=== PATIENT | male | born 1960 | race African-American/Black ===

== ENCOUNTER 2022-04-10 13:46 | Inpatient (IN) | payer OTHER, SELFPAY ==
--- NOTE | ~2022-04-10 | MR_ITS ---
MR BRAIN WITHOUT AND WITH CONTRAST CLINICAL INFORMATION: Possible seizure. Syncope. COMPARISON: Head CT April 10, 2022. TECHNIQUE: Multiplanar, multisequence MRI of the brain was obtained before and after the intravenous administration of 8.5 mL of Gadavist. FINDINGS: There is the suggestion of a punctate acute infarct within the right occipital lobe on image 19 of series 4. There is a small curvilinear focus of enhancement more inferomedially at the right temporal occipital lobe junction on image 9 of series 12 that could reflect enhancement due to a subacute infarct with associated blood brain barrier breakdown that is nonspecific and should be followed with a 6-8 week follow-up MRI with and without IV contrast to document resolution and exclude alternative etiologies. Hippocampi are symmetric in size and normal in morphology without intrinsic signal abnormality. There is a possible 3 mm hypoenhancing lesion within the right aspect of the anterior pituitary lobe that could reflect a pituitary microadenoma which can be correlated with endocrine function tests. There is no hydrocephalus, midline shift, or other herniation pattern. Major arterial flow voids are maintained. There is moderate mucosal thickening throughout all of the paranasal sinuses. The mastoid air cells are clear. MR/MR head/brain wo/w con IMPRESSION: - There is the suggestion of a punctate acute infarct within the right occipital lobe on image 19 of series 4. There is a small curvilinear focus of enhancement more inferomedially at the right temporal occipital lobe junction on image 9 of series 12 that could reflect enhancement due to a subacute infarct with associated blood brain barrier breakdown that is nonspecific and should be followed with a 6-8 week follow-up MRI with and without IV contrast to document resolution and exclude alternative etiologies. - There is a possible 3 mm hypoenhancing lesion within the right aspect of the anterior pituitary lobe that could reflect a pituitary microadenoma which can be correlated with endocrine function tests. - There is mild to moderate chronic microangiopathy. - Moderate sinus mucosal disease.
--- NOTE | ~2022-04-10 | CT_ITS ---
EXAMINATION: CT HEAD WITHOUT CONTRAST CLINICAL INFORMATION: Syncope COMPARISON: None. TECHNIQUE: Contiguous axial imaging was performed from the skull base to vertex without intravenous contrast. This CT examination was performed using dose optimization techniques as appropriate, variously including the following: * Automated exposure control * Adjustment of mA and/or kV according to patient size (this includes techniques or standardized protocols for targeted exams where dose is matched to indication/reason for exam; i.e. extremities or head) Use of iterative reconstruction technique DLP: 620 mGy-cm. FINDINGS: There is no evidence of acute intracranial hemorrhage or territorial infarction. No abnormal mass effect or midline shift is seen. Blanco to white matter differentiation is well preserved. No extra-axial fluid collections are identified. No hydrocephalus. No significant volume loss. There is no abnormal attenuation within the brain parenchyma. The osseous structures and soft tissues are normal. Extensive opacification of the bilateral ethmoid air cells. Mucoperiosteal thickening of the frontal sinuses. The mastoid air cells and visualized portions of the paranasal sinuses are otherwise well aerated. CT/CT head/brain wo con IMPRESSION: No acute intracranial pathology.
--- NOTE | ~2022-04-10 | XR_ITS ---
EXAMINATION: XR CHEST CLINICAL INFORMATION: Syncope COMPARISON: None TECHNIQUE: 2 views of the chest were obtained. FINDINGS: The lungs are well expanded. There is no focal consolidation, edema, or effusion. No pneumothorax. The cardiomediastinal silhouette is within normal limits. No acute osseous abnormality. XR/XR chest 2V IMPRESSION: No acute pulmonary finding.
--- NOTE | ~2022-04-10 | CT_ITS ---
CT ANGIOGRAM NECK WITH CONTRAST CT ANGIOGRAM BRAIN WITH CONTRAST CLINICAL INFORMATION: Acute stroke on MRI. COMPARISON: Brain MRI April 13, [address] April 10, 2022. TECHNIQUE: Test bolus sequences followed by intravenous administration 8.5 mL of Gadavist. Helical imaging was performed in the axial plane from the thoracic inlet to the skull vertex. Delayed postcontrast imaging of the head was also performed. The data was processed at the arrt technologist workstation for generation of MIP sequences. Angled MIPs and volume rendered reformatted images were also generated at an offline 3D workstation under concurrent supervision. Stenoses are assessed in accordance with NASCET criteria unless otherwise indicated. This CT examination was performed using dose optimization techniques as appropriate, variously including the following: *Automated exposure control *Adjustment of mA and/or kV according to patient size (this includes techniques or standardized protocols for targeted exams where dose is matched to indication/reason for exam; i.e. extremities or head) *Use of iterative reconstruction technique FINDINGS: BRAIN: [There is no intracranial hemorrhage, hydrocephalus, extra-axial surface collection, midline shift, or other herniation pattern. Blanco to white matter differentiation is diffusely maintained without evidence of an evolved acute territorial infarct. The basilar cisterns are preserved. No significant soft tissue abnormality. No acute osseous abnormality. Moderate mucosal thickening throughout the paranasal sinuses. CERVICAL SOFT TISSUES AND LUNG APICES: Imaged upper lungs are clear. There is multilevel cervical spondylosis. No significant soft tissue findings within the neck. NECK CTA: [There is a classic 3 vessel configuration of the aortic arch. Proximal arch vessels are non-stenotic. The right vertebral artery is dominant. No significant ostial stenosis is visualized on either side. Both vertebral arteries are widely patent throughout their extracranial cervical course. Both common and internal carotid arteries are normal in course and caliber.] BRAIN CTA: [There is normal opacification of major intracranial arteries. No focal flow-limiting stenosis nor discrete proximal large artery occlusion. No aneurysm. Timing of the contrast bolus allows assessment of the major dural venous sinuses, which all opacify normally] CT/CT angio head neck stroke IMPRESSION: - The small punctate acute infarct within the right occipital lobe seen on the recent brain MRI is not well visualized on this head CT. Chronic microangiopathy again noted. - No acute arterial occlusions and no significant arterial stenoses within the head or neck.
[2022-04-10 14:00] VITALS: BP 98/76; PULSE 84; RESP 18; TEMP 36.7; O2SAT 96; BMI 24.9
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
--- NOTE | 2022-04-10 14:11 | ECG_ITS ---
Test Reason : syncope Blood Pressure : / mmHG Vent. Rate : 083 BPM Atrial Rate : 083 BPM P-R Int : 190 ms QRS Dur : 082 ms QT Int : 386 ms P-R-T Axes : 044 265 080 degrees QTc Int : 453 ms Normal sinus rhythm Possible Left atrial enlargement Right superior axis deviation Nonspecific ST and T wave abnormality Abnormal ECG No previous ECGs available Referred By: Mariam Nava Electronically Signed By:NAZ SALEH
[2022-04-10] MEDS: 0.9 % Sodium Chloride 1,000 ML 999 ML IV (15:06)
[2022-04-10 16:06] LABS: MANUAL DIFF FLAG NO
[2022-04-10 16:08] LABS: Basophils Percent Auto 0.3 % (0-2); Eosinophils Absolute Auto 0.2 X10*3/uL (0.0-0.4); Eosinophils Percent Auto 1.9 % (0-4); Hematocrit 43.6 % (42.0-52.0); Hemoglobin 14.1 g/dl (14.0-18.0); Imm Gran Abs Auto 0.03 X10*3/uL (0.00-0.03); Imm Gran Pct Auto 0.3 % (0.0-0.4); Lymphocytes Absolute Auto 2.2 X10*3/uL (1.2-4.9); Lymphocytes Percent Auto 19.3 % (20-40); Mean Corpuscular HGB Conc 32.3 g/dl (31.0-36.0); Mean Corpuscular Hemoglobin 22.1 pg (27.0-33.0); Mean Corpuscular Volume 68.2 fL (80.0-98.0); Mean Platelet Volume 9.5 fL (9.4-12.4); Monocytes Absolute Auto 0.7 X10*3/uL (0.1-1.2); Monocytes Percent Auto 6.5 % (2-11); Neutrophils Percent Auto 71.7 % (45-73); Platelet Count 197 X10*3/uL (160-400); Red Blood Count 6.39 X10*6/uL (4.60-5.80); Red Cell Distribution Width 14.2 % (11.0-16.0); White Blood Count 11.1 X10*3/uL (4.8-10.8)
[2022-04-10 16:19] LABS: Ethanol < 10 mg/dL
[2022-04-10 16:24] LABS: Alanine Aminotransferase 37 U/L (0-40); Albumin Level 4.1 g/dL (3.5-5.0); Alkaline Phosphatase 51 U/L (39-117); Anion Gap 14 (12-20); Aspartate Amino Transferase 27 U/L (5-37); Blood Urea Nitrogen 11 mg/dL (9-16); Calcium 9.1 mg/dL (8.4-10.2); Carbon Dioxide 26 mmol/L (22-29); Chloride 103 mmol/L (96-108); Creatinine Clr Calc Pharmacy 79.3; Estimated Glomerular Filt Rate > 60; Glucose Random 103 mg/dL (60-115); Magnesium 2.1 mg/dL (1.6-2.6); Potassium 4.3 mmol/L (3.3-5.1); Sodium 139 mmol/L (135-145); Total Protein 6.1 g/dL (6.5-8.0)
[2022-04-10 16:28] LABS: B Type Natriuretic Peptide 1248 pg/mL (<100); Troponin-I High Sensitivity 95.9 ng/L (<3.5-35.0)
[2022-04-10 16:31] LABS: COVID-19 Test Negative (Negative)
[2022-04-10 16:52] VITALS: BP 105/73; PULSE 85; RESP 18; TEMP 36.5; O2SAT 97
--- NOTE | 2022-04-10 17:50 | PHA.MEDREC ---
Pharmacy Consult ? Medication Reconciliation Pharmacy has completed the medication reconciliation Patient states he only takes latanoprost eye drops.
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
[2022-04-10 18:36] LABS: Troponin-I High Sensitivity 103.8 ng/L (<3.5-35.0)
[2022-04-10 19:41] LABS: INTERNATIONAL NORM RATIO 1.1 (0.9-1.1); Prothrombin Time 13.1 SEC (10.0-13.1)
[2022-04-10 19:43] LABS: D Dimer High Sensitivity 159 NG/ML; Partial Thromboplastin Time 33.4 SEC (26.0-36.4)
[2022-04-10] MEDS: Enoxaparin Sodium 40 MG/0.4 ML SYRINGE SUBCUT (19:51)
--- NOTE | 2022-04-10 21:50 | MHC.CM.PN ---
WILLIS 04/10. Cm with patient assigned to observation with bed assignment pending. Pt respectful but not engaging in conversation. Pt lives in [place], [place]. Here visiting. Lives with ex-. Has no DME or Services. Unsure of employment, as pt would not answer. Pt state insurance is [employer] in [place]. PCP is Dr. Deangelo Watson in [place]. Pt declines HCP. Covid vax x2/Moderna. No booster. Pt states will not get a booster. D/C plan is to return home to [place] without services. Will follow up with PCP. Pt will drive himself. CM will follow for d/c planning.
[2022-04-10 21:57] VITALS: BP 101/65; PULSE 87; RESP 18; TEMP 36.7; O2SAT 97
[2022-04-10 22:03] VITALS: BP 101/65; PULSE 87
[2022-04-10 22:04] VITALS: BP 112/76; PULSE 85
[2022-04-10 22:05] VITALS: BP 110/73; PULSE 84
[2022-04-11] VITALS (13 sets, daily range): BP systolic 90–124; BP diastolic 49–82; PULSE 71–86; RESP 14–20; TEMP 36.7–37; O2SAT 95–98
[2022-04-11 01:13] LABS: Appearance Urine Clear; Color Urine Yellow; Glucose Urine UA Negative (Negative); Leukocyte Esterase Urine Negative (Negative); Nitrite Urine Negative (Negative); Specific Gravity - Urine <= 1.005 (1.005-1.025); Urine Blood Negative (Negative); Urine Ketones Negative (Negative); Urine Protein Negative (Neg-Trace)
[2022-04-11 01:22] LABS: Amphetamine Screen Urine Not Detected (Not Detect); Barbiturates, Urine Not Detected (Not Detect); Benzodiazepines Screen Urine Not Detected (Not Detect); Cannabinoid Screen Urine Not Detected (Not Detect); Cocaine Screen Urine Not Detected (Not Detect); Fentanyl, urine Not Detected (Not Detect); Opiate Screen Urine Not Detected (Not Detect); Phencyclidine Screen Urine Not Detected (Not Detect)
[2022-04-11] MEDS: 0.9 % Sodium Chloride Flush 3 ML SYRINGE IVFLUSH ×3 (01:57→16:22)
[2022-04-11 06:51] LABS: Anion Gap 12 (12-20); Blood Urea Nitrogen 10 mg/dL (9-16); Calcium 8.9 mg/dL (8.4-10.2); Carbon Dioxide 27 mmol/L (22-29); Chloride 105 mmol/L (96-108); Estimated Glomerular Filt Rate > 60; Glucose Random 100 mg/dL (60-115); Potassium 4.1 mmol/L (3.3-5.1); Sodium 140 mmol/L (135-145)
--- NOTE | 2022-04-11 11:18 | HO.PM.IMPN ---
Subjective Subjective Date of Service: 04/11/22 Interval History: Seen and evaluated this morning Feels more comfortable with no reported chest pain or further episodes of syncope Review of Systems No fever, chills or weakness No chest pain, palpitation No shortness of breath or coughing No abdominal pain, nausea or vomiting No urinary symptoms No any rash or wounds Physical Exam Vital Signs: Vital Signs: Last Vital Signs Temp 98.4 F 04/11/22 00:00 Pulse 80 04/11/22 08:05 Resp 18 04/11/22 08:05 BP 120/75 04/11/22 08:05 Pulse Ox 95 04/11/22 08:05 O2 Del Method 04/11/22 08:05 BMI result Body Mass Index 24.9 Const: Other: Constitutional : Alert, oriented, not in distress Neck : Normal inspection, Supple Cardiovascular : RRR, no JVP, no lower extremity edema, Respiratory : fair bilateral air entry, no crackles, wheezes or rhonchi Gastrointestinal: soft, lax, Normal bowel sounds, Non tender Skin : Warm, Dry Neurological : Alert & oriented x3, No focal deficit , CN 2-12 within normal Objective Data Active Medications Acetaminophen (Acetaminophen 325 Mg Tablet) 650 mg PO Q6H PRN PRN Reason: Pain, Mild (Pain Scale 1-3) Enoxaparin Sodium (Enoxaparin Sodium 40 Mg/0.4 Ml Syringe) 40 mg SUBCUT Q24H [facility] Last Admin: 04/10/22 19:51 Dose: 40 mg Documented By: ANTHONY Ondansetron HCl (Ondansetron Hcl 4 Mg/2 Ml Vial) 4 mg IVPUSH Q8H PRN PRN Reason: Nausea and Vomiting Pharmacy Consult (Consult Rx Perform Med Rec) 1 each MISCELLANE ONCE PRN PRN Reason: Consult order Sodium Chloride (0.9 % Sodium Chloride Flush 3 Ml Syringe) 3 ml IVFLUSH QSHIFT [facility] Last Admin: 04/11/22 08:00 Dose: 3 ml Documented By: ASUNCION Labs CBC & Chem 7: 04/10/22 16:01 04/11/22 06:02 Labs: Laboratory Results - last 24 hr 04/10/22 04/10/22 04/10/22 16:00 16:01 16:01 MCV 68.2 L MCH 22.1 L MCHC 32.3 RDW 14.2 Plt Count 197 MPV 9.5 Immature Gran % (Auto) 0.3 Neut % (Auto) 71.7 Lymph % (Auto) 19.3 L Arthur % (Auto) 6.5 Eos % (Auto) 1.9 Baso % (Auto) 0.3 Lymph # (Auto) 2.2 Arthur # (Auto) 0.7 Eos # (Auto) 0.2 Baso # (Auto) 0.0 Abs Immat Gran (auto) 0.03 Absolute Neuts (auto) 8.0 Absolute Nucleated RBC 0.000 Nucleated RBC % (auto) 0.0 PT INR APTT D-Dimer High Sensitivty Anion Gap 14 Estim Creat Clear Calc 79.3 Estimated GFR > 60 Random Glucose 103 Lactic Acid Calcium 9.1 Magnesium 2.1 Total Bilirubin 1.0 AST 27 ALT 37 Alkaline Phosphatase 51 B-Natriuretic Peptide Total Protein 6.1 L Albumin 4.1 Urine Color Urine Appearance Urine pH Ur Specific [place] Urine Protein Urine Glucose (UA) Urine Ketones Urine Blood Urine Nitrite Ur Leukocyte Esterase Urine Opiates Screen Urine Fentanyl Screen Ur Barbiturates Screen Ur Phencyclidine Scrn Ur Amphetamines Screen U Benzodiazepines Scrn Urine Cocaine Screen U Marijuana (THC) Screen Ethyl Alcohol COVID-19 ([facility]) Negative COVID-19 Clin Com See Note 04/10/22 04/10/22 04/10/22 16:01 16:01 16:01 MCV MCH MCHC RDW Plt Count MPV Immature Gran % (Auto) Neut % (Auto) Lymph % (Auto) Arthur % (Auto) Eos % (Auto) Baso % (Auto) Lymph # (Auto) [place] # (Auto) Eos # (Auto) Baso # (Auto) Abs Immat Gran (auto) Absolute Neuts (auto) Absolute Nucleated RBC Nucleated RBC % (auto) PT INR APTT D-Dimer High Sensitivty Anion Gap Estim Creat Clear Calc Estimated GFR Random Glucose Lactic Acid 1.0 Calcium Magnesium Total Bilirubin AST ALT Alkaline Phosphatase B-Natriuretic Peptide 1248 H Total Protein Albumin Urine Color Urine Appearance Urine pH Ur Specific [place] Urine Protein Urine Glucose (UA) Urine Ketones Urine Blood Urine Nitrite Ur Leukocyte Esterase Urine Opiates Screen Urine Fentanyl Screen Ur Barbiturates Screen Ur Phencyclidine Scrn Ur Amphetamines Screen U Benzodiazepines Scrn Urine Cocaine Screen U Marijuana (THC) Screen Ethyl Alcohol < 10 COVID-19 ([facility]) COVID-19 [facility] Com 04/10/22 04/11/22 04/11/22 19:27 01:00 01:00 MCV MCH MCHC RDW Plt Count MPV Immature Gran % (Auto) Neut % (Auto) Lymph % (Auto) Arthur % (Auto) Eos % (Auto) Baso % (Auto) Lymph # (Auto) [place] # (Auto) Eos # (Auto) Baso # (Auto) Abs Immat Gran (auto) Absolute Neuts (auto) Absolute Nucleated RBC Nucleated RBC % (auto) PT 13.1 INR 1.1 APTT 33.4 D-Dimer High Sensitivty 159 Anion Gap Estim Creat Clear Calc Estimated GFR Random Glucose Lactic Acid Calcium Magnesium Total Bilirubin AST ALT Alkaline Phosphatase B-Natriuretic Peptide Total Protein Albumin Urine Color Yellow Urine Appearance Clear Urine pH 6.0 Ur Specific [place] <= 1.005 Urine Protein Negative Urine Glucose (UA) Negative Urine Ketones Negative Urine Blood Negative Urine Nitrite Negative Ur Leukocyte Esterase Negative Urine Opiates Screen Not Detected Urine Fentanyl Screen Not Detected Ur Barbiturates Screen Not Detected Ur Phencyclidine Scrn Not Detected Ur Amphetamines Screen Not Detected U Benzodiazepines Scrn Not Detected Urine Cocaine Screen Not Detected U Marijuana (THC) Screen Not Detected Ethyl Alcohol COVID-19 ([facility]) COVID-19 [facility] Com 04/11/22 06:02 MCV MCH MCHC RDW Plt Count MPV Immature Gran % (Auto) Neut % (Auto) Lymph % (Auto) [place] % (Auto) Eos % (Auto) Baso % (Auto) Lymph # (Auto) [place] # (Auto) Eos # (Auto) Baso # (Auto) Abs Immat Gran (auto) Absolute Neuts (auto) Absolute Nucleated RBC Nucleated RBC % (auto) PT INR APTT D-Dimer High Sensitivty Anion Gap 12 Estim Creat Clear Calc 80.0 Estimated GFR > 60 Random Glucose 100 Lactic Acid Calcium 8.9 Magnesium Total Bilirubin AST ALT Alkaline Phosphatase B-Natriuretic Peptide Total Protein Albumin Urine Color Urine Appearance Urine pH Ur Specific [place] Urine Protein Urine Glucose (UA) Urine Ketones Urine Blood Urine Nitrite Ur Leukocyte Esterase Urine Opiates Screen Urine Fentanyl Screen Ur Barbiturates Screen Ur Phencyclidine Scrn Ur Amphetamines Screen U Benzodiazepines Scrn Urine Cocaine Screen U Marijuana (THC) Screen Ethyl Alcohol COVID-19 (LAINE) COVID-19 [facility] Com Assessment and Plan (1) Elevated brain natriuretic peptide (BNP) level: Status: Acute (2) Syncope: Status: Acute (3) Elevated troponin: Status: Acute Plan a 61 years old male with no significant past medical history who presents to the hospital after having a syncopal episode. Syncope Could be secondary to arrhythmia, vasovagal attack, orthostatic changes, Less likely seizure No abnormal rhythm noticed on telemetry negative orthostatic vitals cardiology input appreciated, get previous data and plan for workup by Wednesday Elevated troponin Troponin of 95, repeated [address] and T-wave changes, slow progression of QRS no indication for anticoagulation cardiology suggested possible need for angiogram elevated BNP No clinical symptoms of heart failure Could be secondary to pulmonary hypertension, ACS No chest pain, not requiring oxygen, no lower extremity edema to do an echo to evaluate negative D-dimer DVT PPX Lovenox the patient will need to stay overnight for further evaluation of syncope, abnormal troponin pending further investigation by Wednesday. Quality Stroke Does the patient have a stroke diagnosis?: No VTE Prior VTE?: No VTE Risk Level:: Medical - moderate - high VTE Device Contraindication: Treatment Not Indicated VTE Drug Contraindication: N/A - Med Ordered
--- NOTE | 2022-04-11 11:45 | P.CONCA_ITS ---
History of Present Illness History of Present Illness Date of Service: 04/11/22 Chief complaint: Syncope Narrative: This is a cardiology consultation regarding a syncopal episode. Patient is urgently from ER. It seems that he came to visit this area and then while he was driving locally, he had syncopal episode. According to family, he suddenly became noncommunicative. It was even difficult to open his mouth to give him water. It seems that his face was on the steering wheel. Per documentation, he regained full consciousness within a minute or 2. However, the the whole episod e felt like last much longer. No anginal-type symptoms or any other cardiac symptoms at this time. Otherwise, because of shortness of breath on exertion, he has seen a local roller coaster operator in your. It seems that he underwent echocardiogram as well as stress test. Findings are not clear. According to patient, he was told to have a thick heart muscle. He is not aware of any weak heart function or any of those types of terms. However, based on his description of ' dye test', probably for cardiac catheterization but not yet completed. Review of Systems Review of Systems: Yes all other systems are reviewed and are negative Constitutional: Constitutional: Reports as per HPI Eyes: Eyes: Reports as per HPI ENT: Reports as per HPI Cardiovascular: Cardiovascular: Reports as per HPI, Denies acrocyanosis, Denies cool extremities, Denies chest pain, Reports syncope, Denies leg edema, Denies lightheadedness, Denies palpitations and Denies dyspnea Respiratory: Respiratory: Reports as per HPI, Reports no additional respiratory complaints and Denies dyspnea Gastrointestinal: Gastrointestinal: Reports as per HPI and Reports no additional gastrointestinal complaints Genitourinary: Genitourinary: Reports no additional male genitourinary complaints and Reports as per HPI Musculoskeletal: Musculoskeletal: Reports no additional musculoskeletal complaints and Reports as per HPI Integumentary/Breasts: Skin/Breast: Reports system reviewed and no additional complaints, except as docu Neurologic: Reports system reviewed and no additional complaints, except as documented, Reports as per HPI and Reports syncope Psychiatric: Psychiatric: Reports no additional psychiatric complaints and Reports as per HPI Endocrine: Endocrine: Reports no additional endocrine complaints, Reports as per HPI and Denies palpitations Hematologic/Lymphatic: Hematologic/Lymphatic: Reports no additional hematologic/lymphatic complaints and Reports as per HPI Allergic/Immunologic: Allergic/Immunologic: Reports no additional aller gic/immunologic complaints and Reports as per [facility] Past Medical History Medical History Glaucoma Family History Family History (Updated 04/11/22 @ 11:48 by Azael Carter MD) Father Heart problem Social History Social History Advance Directives: No Advance Directives Information Provided: No service: No Current occupational status: other Meds Allergies Allergy/AdvReac Type Severity Reaction Status Date / Time No Known Allergies Allergy Verified 04/10/22 14:01 Active Medications: Current Medications Acetaminophen (Acetaminophen 325 Mg Tablet) 650 mg PO Q6H PRN PRN Reason: Pain, Mild (Pain Scale 1-3) Enoxaparin Sodium (Enoxaparin Sodium 40 Mg/0.4 Ml Syringe) 40 mg SUBCUT Q24H [facility] Last Admin: 04/10/22 19:51 Dose: 40 mg Ondansetron HCl (Ondansetron Hcl 4 Mg/2 Ml Vial) 4 mg IVPUSH Q8H PRN PRN Reason: Nausea and Vomiting Pharmacy Consult (Consult Rx Perform Med Rec) 1 each MISCELLANE ONCE PRN PRN Reason: Consult order Sodium Chloride (0.9 % Sodium Chloride Flush 3 Ml Syringe) 3 ml IVFLUSH QSHIFT [facility] Last Admin: 04/11/22 08:00 Dose: 3 ml Home Medications Medication Instructions Recorded Confirmed Last Taken Type latanoprost 0.005 % eye drops 1 drp ophthalmic (eye) DAILY 04/10/22 04/10/22 04/09/22 History Physical Exam Vital Signs: Vital Signs: Last Vital Signs Temp 98.4 F 04/11/22 00:00 Pulse 80 04/11/22 08:05 Resp 18 04/11/22 08:05 BP 120/75 04/11/22 08:05 Pulse Ox 95 04/11/22 08:05 O2 Del Method 04/11/22 08:05 BMI result Body Mass Index 24.9 Const: General: comfortable and no acute distress Orientation/consciousness: patient oriented x3 HEENT: Other: Unremarkable Head: Yes normal to inspection Neck: Neck: Yes normal visual inspection Chest: Chest palpation & inspection: normal inspection of the chest Resp: Auscultation: clear to auscultation bilaterally Cardio: Palpation: normal PMI Heart sounds: S1 normal heart sound present, S2 normal heart sound present, no gallops, no murmurs and no rubs GI: Palpation (GI): Soft to palpation Back/Spine/Pelvis: Other: unremarkable Skin: General skin exam: no rashes or lesions noted Neuro: General: patient oriented x3 Extrem: General: Yes normal to inspection Psych: Mental Status: mental status grossly normal Objective Labs and Meds Result diagrams: 04/10/22 16:01 04/11/22 06:02 Lab results: Laboratory Results - last 24 hr 04/10/22 04/10/22 04/10/22 16:00 16:01 16:01 WBC 11.1 H RBC 6.39 H Hgb 14.1 Hct 43.6 MCV 68.2 L MCH 22.1 L MCHC 32.3 RDW 14.2 Plt Count 197 MPV 9.5 Immature Gran % (Auto) 0.3 Neut % (Auto) 71.7 Lymph % (Auto) 19.3 L [place] % (Auto) 6.5 Eos % (Auto) 1.9 Baso % (Auto) 0.3 Lymph # (Auto) 2.2 [place] # (Auto) 0.7 Eos # (Auto) 0.2 Baso # (Auto) 0.0 Abs Immat Gran (auto) 0.03 Absolute Neuts (auto) 8.0 Absolute Nucleated RBC 0.000 Nucleated RBC % (auto) 0.0 PT INR APTT D-Dimer High Sensitivty Sodium 139 Potassium 4.3 Chloride 103 Carbon Dioxide 26 Anion Gap 14 BUN 11 Creatinine 1.06 Estim Creat Clear Calc 79.3 Estimated GFR > 60 Random Glucose 103 Lactic Acid Calcium 9.1 Magnesium 2.1 Total Bilirubin 1.0 AST 27 ALT 37 Alkaline Phosphatase 51 Troponin I High Sens B-Natriuretic Peptide Total Protein 6.1 L Albumin 4.1 Urine Color Urine Appearance Urine pH Ur Specific [place] Urine Protein Urine Glucose (UA) Urine Ketones Urine Blood Urine Nitrite Ur Leukocyte Esterase Urine Opiates Screen Urine Fentanyl Screen Ur Barbiturates Screen Ur Phencyclidine Scrn Ur Amphetamines Screen U Benzodiazepines Scrn Urine Cocaine Screen U Marijuana (THC) Screen Ethyl Alcohol COVID-19 ([facility]INE) Negative COVID-19 Clin Com See Note 04/10/22 04/10/22 04/10/22 16:01 16:01 16:01 WBC RBC Hgb Hct MCV MCH MCHC RDW Plt Count MPV Immature Gran % (Auto) Neut % (Auto) Lymph % (Auto) [place] % (Auto) Eos % (Auto) Baso % (Auto) Lymph # (Auto) [place] # (Auto) Eos # (Auto) Baso # (Auto) Abs Immat Gran (auto) Absolute Neuts (auto) Absolute Nucleated RBC Nucleated RBC % (auto) PT INR APTT D-Dimer High Sensitivty Sodium Potassium Chloride Carbon Dioxide Anion Gap BUN Creatinine Estim Creat Clear Calc Estimated GFR Random Glucose Lactic Acid 1.0 Calcium Magnesium Total Bilirubin AST ALT Alkaline Phosphatase Troponin I High Sens 95.9 H B-Natriuretic Peptide 1248 H Total Protein Albumin Urine Color Urine Appearance Urine pH Ur Specific [place] Urine Protein Urine Glucose (UA) Urine Ketones Urine Blood Urine Nitrite Ur Leukocyte Esterase Urine Opiates Screen Urine Fentanyl Screen Ur Barbiturates Screen Ur Phencyclidine Scrn Ur Amphetamines Screen U Benzodiazepines Scrn Urine Cocaine Screen U Marijuana (THC) Screen Ethyl Alcohol < 10 COVID-19 ([facility]) COVID-19 Clin Com 04/10/22 04/10/22 04/11/22 18:04 19:27 01:00 WBC RBC Hgb Hct MCV MCH MCHC RDW Plt Count MPV Immature Gran % (Auto) Neut % (Auto) Lymph % (Auto) [place] % (Auto) Eos % (Auto) Baso % (Auto) Lymph # (Auto) [place] # (Auto) Eos # (Auto) Baso # (Auto) Abs Immat Gran (auto) Absolute Neuts (auto) Absolute Nucleated RBC Nucleated RBC % (auto) PT 13.1 INR 1.1 APTT 33.4 D-Dimer High Sensitivty 159 Sodium Potassium Chloride Carbon Dioxide Anion Gap BUN Creatinine Estim Creat Clear Calc Estimated GFR Random Glucose Lactic Acid Calcium Magnesium Total Bilirubin AST ALT Alkaline Phosphatase Troponin I High Sens 103.8 H* B-Natriuretic Peptide Total Protein Albumin Urine Color Yellow Urine Appearance Clear Urine pH 6.0 Ur Specific [place] <= 1.005 Urine Protein Negative Urine Glucose (UA) Negative Urine Ketones Negative Urine Blood Negative Urine Nitrite Negative Ur Leukocyte Esterase Negative Urine Opiates Screen Urine Fentanyl Screen Ur Barbiturates Screen Ur Phencyclidine Scrn Ur Amphetamines Screen U Benzodiazepines Scrn Urine Cocaine Screen U Marijuana (THC) Screen Ethyl Alcohol COVID-19 ([facility]) COVID-19 Clin Com 04/11/22 04/11/22 01:00 06:02 WBC RBC Hgb Hct MCV MCH MCHC RDW Plt Count MPV Immature Gran % (Auto) Neut % (Auto) Lymph % (Auto) [place] % (Auto) Eos % (Auto) Baso % (Auto) Lymph # (Auto) [place] # (Auto) Eos # (Auto) Baso # (Auto) Abs Immat Gran (auto) Absolute Neuts (auto) Absolute Nucleated RBC Nucleated RBC % (auto) PT INR APTT D-Dimer High Sensitivty Sodium 140 Potassium 4.1 Chloride 105 Carbon Dioxide 27 Anion Gap 12 BUN 10 Creatinine 1.05 Estim Creat Clear Calc 80.0 Estimated GFR > 60 Random Glucose 100 Lactic Acid Calcium 8.9 Magnesium Total Bilirubin AST ALT Alkaline Phosphatase Troponin I High Sens B-Natriuretic Peptide Total Protein Albumin Urine Color Urine Appearance Urine pH Ur Specific [place] Urine Protein Urine Glucose (UA) Urine Ketones Urine Blood Urine Nitrite Ur Leukocyte Esterase Urine Opiates Screen Not Detected Urine Fentanyl Screen Not Detected Ur Barbiturates Screen Not Detected Ur Phencyclidine Scrn Not Detected Ur Amphetamines Screen Not Detected U Benzodiazepines Scrn Not Detected Urine Cocaine Screen Not Detected U Marijuana (THC) Screen Not Detected Ethyl Alcohol COVID-19 ([facility]) COVID-19 Clin Com ECG Interpretation: EKG with sinus rhythm at 83/Min; right superior axis; nonspecific ST-T changes; normal ND and corrected QT. Imaging Radiologist's impression: Impressions Head CT 04/10/22 14:48 IMPRESSION: No acute intracranial pathology. Chest X-Ray 04/10/22 14:50 IMPRESSION: No acute pulmonary finding. Assessment and Plan (1) Syncope: Status: Acute (2) Elevated troponin: Status: Acute (3) Elevated brain natriuretic peptide (BNP) level: Status: Acute Plan High sensitivity troponins are 95.9 and 103.8. Cardiac BNP 1248. Other labs grossly unremarkable. Chest x-ray reported to be unremarkable. Head CT shows no acute pathology. Overall, etiology for the syncopal episode is not clear. His elevated cardiac BNP as well as troponins are certainly concerning. We do not have his baseline and hence he could have these chronically elevated. Need to get records from his roller coaster operator regarding what has already been done including echocardiog jhonny/stress test. Otherwise, can monitor on telemetry at this time. May need a diagnostic catheterization as well. Once records are reviewed we can decide. Discussed with family at the bedside. Discussed with Dr. Bowles. Procedures Date of Service Date of Service: 04/11/22
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
--- NOTE | 2022-04-11 13:39 | PC.NURSE ---
Assumed care of pt at 0700, A&Ox4, no complaints of pain at this time, denies any episodes of dizziness or near syncope, denies CP, SOB, N/V at this time. Awaiting cardiac consult. Call granger within reach, will continue to monitor.
--- NOTE | 2022-04-11 16:14 | PC.NURSE ---
Gave report to Rere. Pt going to Rm [id number].
[2022-04-11] MEDS: Enoxaparin Sodium 40 MG/0.4 ML SYRINGE SUBCUT (19:09)
[2022-04-12] VITALS (8 sets, daily range): BP systolic 105–129; BP diastolic 65–81; PULSE 75–81; RESP 18–20; TEMP 36.7–37.2; O2SAT 95–99
[2022-04-12 07:42] LABS: Anion Gap 12 (12-20); B Type Natriuretic Peptide 1337 pg/mL (<100); Blood Urea Nitrogen 10 mg/dL (9-16); Carbon Dioxide 28 mmol/L (22-29); Chloride 103 mmol/L (96-108); Creatinine Clr Calc Pharmacy 72.4; Estimated Glomerular Filt Rate > 60; Glucose Random 122 mg/dL (60-115); Potassium 3.9 mmol/L (3.3-5.1); Sodium 139 mmol/L (135-145)
[2022-04-12] MEDS: 0.9 % Sodium Chloride Flush 3 ML SYRINGE IVFLUSH ×2 (07:48→15:28)
--- NOTE | 2022-04-12 12:26 | HO.PM.IMPN ---
Subjective Subjective Date of Service: 04/12/22 Interval History: Seen and evaluated this morning Feels more comfortable with no reported chest pain or further episodes of syncope No abnormal waves on telemetry Review of Systems No fever, chills or weakness No chest pain, palpitation No shortness of breath or coughing No abdominal pain, nausea or vomiting No urinary symptoms No any rash or wounds Physical Exam Vital Signs: Vital Signs: Last Vital Signs Temp 98.3 F 04/12/22 11:43 Pulse 81 04/12/22 11:43 Resp 20 04/12/22 11:43 BP 112/74 04/12/22 11:43 Pulse Ox 98 04/12/22 11:43 O2 Del Method 04/12/22 11:43 BMI result Body Mass Index 24.9 Const: Other: Constitutional : Alert, oriented, not in distress Neck : Normal inspection, Supple Cardiovascular : RRR, no JVP, no lower extremity edema, Respiratory : fair bilateral air entry, no crackles, wheezes or rhonchi Gastrointestinal: soft, lax, Normal bowel sounds, Non tender Skin : Warm, Dry Neurological : Alert & oriented x3, No focal deficit , CN 2-12 within normal Objective Data Active Medications Acetaminophen (Acetaminophen 325 Mg Tablet) 650 mg PO Q6H PRN PRN Reason: Pain, Mild (Pain Scale 1-3) Enoxaparin Sodium (Enoxaparin Sodium 40 Mg/0.4 Ml Syringe) 40 mg SUBCUT Q24H [facility] Last Admin: 04/11/22 19:09 Dose: 40 mg Documented By: DIANA Ondansetron HCl (Ondansetron Hcl 4 Mg/2 Ml Vial) 4 mg IVPUSH Q8H PRN PRN Reason: Nausea and Vomiting Pharmacy Consult (Consult Rx Perform Med Rec) 1 each MISCELLANE ONCE PRN PRN Reason: Consult order Sodium Chloride (0.9 % Sodium Chloride Flush 3 Ml Syringe) 3 ml IVFLUSH QSHIFT [facility] Last Admin: 04/12/22 07:48 Dose: 3 ml Documented By: SHANNAN Labs CBC & Chem 7: 04/10/22 16:01 04/12/22 06:52 Labs: Laboratory Results - last 24 hr 04/12/22 04/12/22 06:52 06:52 Anion Gap 12 Estim Creat Clear Calc 72.4 Estimated GFR > 60 Random Glucose 122 H Calcium 9.0 B-Natriuretic Peptide 1337 H Assessment and Plan (1) Elevated brain natriuretic peptide (BNP) level: Status: Acute (2) Elevated troponin: Status: Acute (3) Syncope: Status: Acute Plan a 61 years old male with no significant past medical history who presents to the hospital after having a syncopal episode. Syncope no clear etiology identified with seems cardiac in origin No abnormal rhythm noticed on telemetry negative orthostatic vitals to do an echo tomorrow cardiology input appreciated, get previous data and plan for workup by Wednesday Elevated troponin Troponin of 95, repeated [address] and T-wave changes, slow progression of QRS no indication for anticoagulation cardiology following elevated BNP No clinical symptoms of heart failure Could be secondary to pulmonary hypertension, ACS to do an echo to evaluate DVT PPX Lovenox the patient will need to stay overnight for further evaluation of syncope, abnormal troponin pending further investigation by Echo and cardiac follow-up Quality Stroke Does the patient have a stroke diagnosis?: No VTE Prior VTE?: No VTE Risk Level:: Medical - moderate - high VTE Device Contraindication: Treatment Not Indicated VTE Drug Contraindication: N/A - Med Ordered
[2022-04-12] MEDS: Enoxaparin Sodium 40 MG/0.4 ML SYRINGE SUBCUT (18:16)
[2022-04-13] VITALS (11 sets, daily range): BP systolic 94–119; BP diastolic 57–80; PULSE 73–87; RESP 16–20; TEMP 36.4–37.1; O2SAT 93–99
--- NOTE | 2022-04-13 | EEG_ITS ---
This is a 16-channel EEG with an EKG lead. The patient is reported awake during the tracing. Background EEG rhythm is low amplitude 10-12 hertz posteriorly and lower amplitude fast anteriorly. Photic stimulation does not produce any significant driving. Hyperventilation is not performed. Cardiac lead does not reveal any significant abnormality. No definite sharp wave, spikes, or paroxysmal tendency noted. IMPRESSION: No significant abnormality noted on this EEG. MD TIFFANY Ridley/SHAI / [id number]
[2022-04-13] MEDS: 0.9 % Sodium Chloride Flush 3 ML SYRINGE IVFLUSH ×3 (00:07→18:21)
--- NOTE | 2022-04-13 07:00 | CA_ITS ---
Transthoracic Echocardiogram Patient (Last, First, Middle): Moiz Fitzgerald, Gender: Male Date of : 1960 Age: 61 Procedure Date: 04/13/2022 Procedure Type: Transthoracic Echocardiogram Location: [facility] [place] Height: 182.88 cm Weight: 83.46 kg BSA: 2.06 m2 Heart Rate: bpm BP: 115 / 58 mmHg Air Carrier Operations Inspector: WOJCIECH Referring MD: Garrett Bowles MD Compensation Expert: Matias Ram MD Symptoms: Elevated Trop I, Syncope Study Quality: Good ECG Rhythm: Sinus Conclusions: - 1. Low normal LV systolic function with LVEF of 50-55% with severely increase thickness of left ventricular wall with at least grade 2 diastolic dysfunction 2. Moderately dilated left atrium 3. Trivial aortic and mitral regurgitation 4. Normal RV systolic pressure 5. Trivial pericardial effusion Findings Left Ventricle Normal left ventricular cavity size. There is severely increased left ventricular wall thickness. The left ventricular systolic function is low normal. The visually estimated ejection fraction is between 50-55%. Spectral Doppler is indicative of a pseudonormal filling pattern. E/E prime ratio is >15, consistent with elevated filling pressures. Evidence suggests grade II (moderate) diastolic dysfunction. Peak GLS in -13.6%, which is reduced with relative apical sparring. Consider amyloidosis type infiltrative disorder. Right Ventricle Normal right ventricular cavity size. There is low normal right ventricular systolic function. Atria The left atrium is moderately dilated. There is no evidence of interatrial shunt. The right atrium is normal in size. Aortic Valve There is mild thickening of the aortic valve. There is no aortic valve stenosis. There is trace (trivial) aortic valve regurgitation. Mitral Valve There is mild anterior and posterior mitral leaflet thickening. There is trace mitral valve regurgitation. There is no mitral valve stenosis. Pulmonic Valve The pulmonic valve is likely normal. There is trace to mild pulmonic valve regurgitation. Tricuspid Valve Normal tricuspid valve structure. There is trace tricuspid valve regurgitation. The right ventricular systolic pressure is normal. Normal right atrial pressure. There is no evidence of pulmonary hypertension. Great Vessels All visible segments of the aorta are normal in size. The pulmonary artery was not well visualized. Venous The inferior vena cava is normal in size and collapses greater than 50% with inspiration. Pericardium/Pleural There is a trivial pericardial effusion. Prior Study Comparison No prior study available for comparison. Measurements 2D Linear Measurements IVSd: 1.69 0.6-0.9/0.6-1.0 cm LVIDd: 3.99 3.9-5.3/4.2-5.9 cm LVIDd Index: 1.94 2.4-3.2/2.2-3.1 cm/m2 LVIDs: 3.20 2.0-3.6 cm LVPWd: 1.79 0.7-1.1 cm LA Diam: 3.50 2.7-3.8/3.0-4.0 cm LAIDs Index: 1.70 1.5-2.3 cm/m2 LV Mass: 367.44 67-162/88-224 g LV Mass Index: 178.37 43-95/49-115 g/m2 LVOT Diam: 1.90 3.0+(-)1.3 cm 2D Systolic Function EF 4C: 53.60 >55% EF 2C: 52.90 >55% EF BiP: 53.60 >55% Mitral Valve MV Pk E: 0.85 MV PK A: 0.28 MV Decel Time: 180.00 E/A: 3.00 E'Lateral: 2.82 E'Medial: 4.12 E/E' Med: 20.70 E/E' Lat: 30.30 PHT: 53.00 MVA PHT: 4.15 Decel Desha: 4.74 Aortic Valve AoV Pk Durga: 1.08 AoV Mn Durga: 0.82 AoV VTI: 0.19 AoV Pk Grad: 5.00 Aov Mn Grad: 3.00 ESTER Cont.VTI: 1.98 LVOT LVOT Pk Durga: 0.80 LVOT Mn Durga: 0.54 LVOT VTI: 0.14 LVOT Pk Grad: 3.00 LVOT Mn Grad: 1.00 LVOT Diam: 1.90 LVOT Area: 2.84 Diastolic Function MV Pk E: 0.85 MV Pk A: 0.28 E/A: 3.00 E'Medial: 4.12 E/E' Med: 20.70 E' Laterial: 2.82 E/E' Lat: 30.30 Right Ventricle TAPSE (mm): 16.30 TVS' Durga: 10.40 Tricuspid Valve TR Pk Durga: 1.52 TR Pk Grad: 9.00 RA Press: 3.00 RVSP: 12.00 Great Vessels Aorta Sinus of Valsalva: 3.45 2.0-3.[address] Ridge: 2.71 1.7-3.4 cm Ao Asc: 2.80 2.1-3.4 cm Ao Arch: 3.00 Updated in Other Vendor System with Status of Final Matias Ram MD electronically signed on 04/14/2022 8:46:13 AM with status of Final
--- NOTE | 2022-04-13 11:10 | MHC.STROKE ---
Addendum entered by An Javier RN 04/14/22 15:40: PATIENT SAID HIS MOTHER HAD A STROKE, +FAMILY HISTORY Addendum entered by An Javier RN 04/14/22 11:16: YESTERDAY AT 1600 I REACHED OUT TO HIS WELL BLOWER RAHAT MONTENEGRO IN [facility], I LEFT A MESSAGE FOR HIM TO CALL DR HA. THEY SAID THEY WOULD WITHIN 20-30 MINUTES. THAT DID NOT OCCUR. I REVIEWED HIS DISCHARGE PLAN OF CARE WITH HIM AND S.O., I STRESSED THE IMPORTANCE OF FOLLOWING UP WITH HIS WELL BLOWER AND WHY. I REVIEWED SEVERAL OPTIONS THAT THE WELL BLOWER MAY RECOMMEND BASED ON DR. RESENDIZ'S RECOMMENDATIONS. I.E. ADDITIONAL CARDIAC MONITORING AN OUTPATIENT. I SHOWED HIM DIFFERENT OPTIONS 30 DAY, LINQ IMPLANTABLE AND ANSWERED THEIR QUESTIONS.I STRESSED THE IMPORTANCE OF TAKING ALL PRESCRIBED MEDICATIONS, CALLING 911 IF HE EXHIBITING ANY NEURO OR CARDIAC SYMPTOMS. Addendum entered by An Javier RN 04/13/22 12:10: 04/13/22 1155 I MET WITH THE PATIENT AND S.O. TO DISCUSS HIS MRI RESULTS AND STROKE DIAGNOSIS. WE REVIEWED THE MRI SCREENSHOT AND THE LOCATION OF THE STROKE. I EXPLAINED THE PLAN OF CARE, ANSWERED HIS QUESTIONS, REVIEWED HIS RISK FACTORS AND STEP BY STEP WHAT HAS HAPPENED TO HIM. STROKE EDUCATION BOOKLET AND POWERPOINT BOOKLET WAS GIVEN AND REVIEWED. CTA H/N WAS DONE, RESULTS PENDING. HE WAS EXCLUDED FROM [facility] UPON ARRIVAL BASED ON A NIHSS = 0 AND SYMPTOMS ONLY LAST 2 MINUTES. Original Note: 04/10/22 1335 EMS PRE-NOTIFIED 2 MINUTE SYNCOPAL EPISODE, PATIENT ARRIVING VIA EMS. ARRIVED 1346. SEEN BY PROVIDER, CTH DONE, NO BLEED. SYMPTOMS RESOLVED, NIHSS = 0, PASSED SWALLOW SCREEN. ADMITTED OBSERVATION FOR SYNCOPAL EPISODE. NEURO AND CARDIOLOGY CONSULTS. ADMITTED TO INPATIENT STATUS 04/12. THIS AM MRI REVEALED A RIGHT PARIETAL AND SUBACUTE OCCIPITAL ISCHEMIC INFARCT. DR NATARAJAN REVIEWED THE SCAN, DR HA NOTIFIED. SEE DR NATARAJAN'S NOTE. ADDED ASPIRIN, STATIN, LIPID PANEL, EEG, CTA H/N, AMBULATING AD JOSH, THEREFORE REHAB IS NOT INDICATED. ALL STROKE MEASURES IN PLACE.
--- NOTE | 2022-04-13 11:20 | MHC.CM.PN ---
Per ROUNDS discussion, Patient is not yet medically cleared for dc (MRI pending); home no services is the tentative plan and CM will continue to follow.
[2022-04-13 11:41] LABS: Cholesterol 218 mg/dL; HDL Cholesterol 43 mg/dL; LDL Cholesterol Calculated 155 mg/dl; Triglycerides 103 mg/dL
[2022-04-13] MEDS: Atorvastatin Calcium 80 MG TABLET PO (12:05)
[2022-04-13] MEDS: Aspirin Enteric Coated 81 MG TABLET.DR PO (12:05)
[2022-04-13] MEDS: iohexoL 350 MG/ML 100 ML INFUS..BTL IV (12:11)
--- NOTE | 2022-04-13 13:15 | P.PNIM_ITS ---
Subjective Subjective Date of Service: 04/13/22 Interval History: Seen and evaluated this morning Feels more comfortable with no reported chest pain or further episodes of syncope brain MRI positive for acute stroke No abnormal waves on telemetry Review of Systems No fever, chills or weakness No chest pain, palpitation No shortness of breath or coughing No abdominal pain, nausea or vomiting No urinary symptoms No any rash or wounds Physical Exam Vital Signs: Vital Signs: Last Vital Signs Temp 98.6 F 04/13/22 12:00 Pulse 86 04/13/22 12:00 Resp 20 04/13/22 12:00 BP 112/80 04/13/22 12:00 Pulse Ox 98 04/13/22 12:00 O2 Del Method 04/13/22 12:00 BMI result Body Mass Index 24.9 Const: Other: Constitutional : Alert, oriented, not in distress Neck : Normal inspection, Supple Cardiovascular : RRR, no JVP, no lower extremity edema, Respiratory : fair bilateral air entry, no crackles, wheezes or rhonchi Gastrointestinal: soft, lax, Normal bowel sounds, Non tender Skin : Warm, Dry Neurological : Alert & oriented x3, No focal deficit , CN 2-12 within normal Objective Data Active Medications Acetaminophen (Acetaminophen 325 Mg Tablet) 650 mg PO Q6H PRN PRN Reason: Pain, Mild (Pain Scale 1-3) Aspirin (Aspirin Enteric Coated 81 Mg Tablet.) 81 mg PO DAILY [facility] Last Admin: 04/13/22 12:05 Dose: 81 mg Documented By: DEWAYNE Atorvastatin Calcium (Atorvastatin Calcium 80 Mg Tablet) 80 mg PO DAILY [facility] Last Admin: 04/13/22 12:05 Dose: 80 mg Documented By: DEWAYNE Enoxaparin Sodium (Enoxaparin Sodium 40 Mg/0.4 Ml Syringe) 40 mg SUBCUT Q24H [facility] Last Admin: 04/12/22 18:16 Dose: 40 mg Documented By: SHANNAN Ondansetron HCl (Ondansetron Hcl 4 Mg/2 Ml Vial) 4 mg IVPUSH Q8H PRN PRN Reason: Nausea and Vomiting Pharmacy Consult (Consult Rx Perform Med Rec) 1 each MISCELLANE ONCE PRN PRN Reason: Consult order Sodium Chloride (0.9 % Sodium Chloride Flush 3 Ml Syringe) 3 ml IVFLUSH QSHIFT [facility] Last Admin: 04/13/22 07:36 Dose: 3 ml Documented By: DEWAYNE Labs CBC & Chem 7: 04/10/22 16:01 04/12/22 06:52 Labs: Laboratory Results - last 24 hr 04/12/22 06:52 Triglycerides 103 Cholesterol 218 LDL Cholesterol, Calc 155 HDL Cholesterol 43 Assessment and Plan (1) Acute embolic stroke: Status: Acute (2) Elevated brain natriuretic peptide (BNP) level: Status: Acute (3) Elevated troponin: Status: Acute (4) Syncope: Status: Acute Plan a 61 years old male with no significant past medical history who presents to the hospital after having a syncopal episode. Acute stroke Seems to be in bowel again nature Noted on MRI of the brain Start on aspirin,High-dose statin Pending cardiac evaluation as most likely source pending CTA Check lipid profile Neurology input appreciated,Advised not to drive or run heavy machinery or swimming alone, Hold antiepileptic at this point get an EEG Syncope no clear etiology identified with seems cardiac in origin No abnormal rhythm noticed on telemetry negative orthostatic vitals cardiology input appreciated, get previous data and plan for workup by Wednesday elevated BNP Elevated troponin EKG showing nonspecific ST and T-wave changes, slow progression of QRS no indication for anticoagulation cardiology following pending echo DVT PPX Lovenox the patient will need to stay overnight for further evaluation of syncope, abnormal troponin pending further investigation by Echo and cardiac follow-up Quality Stroke Does the patient have a stroke diagnosis?: No VTE Prior VTE?: No VTE Risk Level:: Medical - moderate - high VTE Device Contraindication: Treatment Not Indicated VTE Drug Contraindication: N/A - Med Ordered
[2022-04-13] MEDS: Enoxaparin Sodium 40 MG/0.4 ML SYRINGE SUBCUT (19:12)
[2022-04-14 03:48] VITALS: BP 92/62; PULSE 78; RESP 16; TEMP 36.9; O2SAT 99
[2022-04-14 06:54] LABS: Hematocrit 44.9 % (42.0-52.0); Hemoglobin 14.5 g/dl (14.0-18.0); Mean Corpuscular HGB Conc 32.3 g/dl (31.0-36.0); Mean Corpuscular Hemoglobin 22.1 pg (27.0-33.0); Mean Corpuscular Volume 68.3 fL (80.0-98.0); Mean Platelet Volume 10.1 fL (9.4-12.4); Platelet Count 216 X10*3/uL (160-400); Red Blood Count 6.57 X10*6/uL (4.60-5.80); Red Cell Distribution Width 13.9 % (11.0-16.0); White Blood Count 10.1 X10*3/uL (4.8-10.8)
[2022-04-14 06:55] LABS: Anion Gap 12 (12-20); Blood Urea Nitrogen 10 mg/dL (9-16); Carbon Dioxide 29 mmol/L (22-29); Chloride 104 mmol/L (96-108); Estimated Glomerular Filt Rate > 60; Glucose Random 96 mg/dL (60-115); Potassium 4.1 mmol/L (3.3-5.1); Sodium 141 mmol/L (135-145)
[2022-04-14 07:37] VITALS: BP 94/61; PULSE 80; RESP 17; TEMP 36.6; O2SAT 99
[2022-04-14 08:00] VITALS: BP 85/52; PULSE 82
[2022-04-14 08:25] VITALS: BP 98/62; PULSE 77
[2022-04-14 08:27] VITALS: BP 90/59; PULSE 81
[2022-04-14] MEDS: Aspirin Enteric Coated 81 MG TABLET.DR PO (09:14)
[2022-04-14] MEDS: Atorvastatin Calcium 80 MG TABLET PO (09:15)
[2022-04-14] MEDS: 0.9 % Sodium Chloride Flush 3 ML SYRINGE IVFLUSH (09:18)
--- NOTE | 2022-04-14 10:03 | P.PNCA_ITS ---
Subjective Subjective Date of Service: 04/14/22 Principal diagnosis: Stroke, elevated BNP Interval history: Patient currently not having any cardiac symptoms. Overnight cardiac telemetry did not show any arrhythmias. MRI shows an acute embolic stroke. Echocardio gram shows severely increased thickness of the left ventricle with pattern suggestive of cardiac amyloidosis. He has no heart failure symptoms Review of Systems Review of Systems Yes all other systems are reviewed and are negative Physical Exam Vital Signs: Last Vital Signs Temp 97.8 F 04/14/22 07:37 Pulse 81 04/14/22 08:27 Resp 17 04/14/22 07:37 BP 90/59 L 04/14/22 08:27 Pulse Ox 99 04/14/22 07:37 O2 Del Method 04/14/22 07:37 BMI result Body Mass Index 24.9 Const General: cooperative, comfortable, no acute distress, well developed, alert and awake Nutritional Appearance: average body habitus and well nourished Orientation/consciousness: patient oriented x3 Neck Neck: Yes trachea midline, Yes supple and Yes no JVD Chest Chest palpation & inspection: normal inspection of the chest Resp Effort & Inspection: normal respiratory effort Auscultation: clear to auscultation bilaterally Cardio Jugular venous distension: no JVD Palpation: normal PMI Rate: regular rate Rhythm: regular rhythm Heart sounds: S1 normal heart sound present, S2 normal heart sound present, no click, no gallops, no murmurs and no rubs GI Auscultation: normal bowel sounds Skin General skin exam: no rashes or lesions noted Neuro General: patient oriented x3 and no focal motor deficits Extrem General: Yes no clubbing, cyanosis or edema Objective Labs and Meds Result diagrams: 04/14/22 06:15 04/14/22 06:15 Lab results: Laboratory Results - last 24 hr 04/12/22 04/14/22 04/14/22 06:52 06:15 06:15 WBC 10.1 RBC 6.57 H Hgb 14.5 Hct 44.9 MCV 68.3 L MCH 22.1 L MCHC 32.3 RDW 13.9 Plt Count 216 MPV 10.1 Absolute Nucleated RBC 0.000 Nucleated RBC % (auto) 0.0 Sodium 141 Potassium 4.1 Chloride 104 Carbon Dioxide 29 Anion Gap 12 BUN 10 Creatinine 1.05 Estim Creat Clear Calc 80.0 Estimated GFR > 60 Random Glucose 96 Calcium 9.0 Triglycerides 103 Cholesterol 218 LDL Cholesterol, Calc 155 HDL Cholesterol 43 Imaging Radiologist's impression: Impressions Brain MRI 04/13/22 10:04 IMPRESSION: - There is the suggestion of a punctate acute infarct within the right occipital lobe on image 19 of series 4. There is a small curvilinear focus of enhancement more inferomedially at the right temporal occipital lobe junction on image 9 of series 12 that could reflect enhancement due to a subacute infarct with associated blood brain barrier breakdown that is nonspecific and should be followed with a 6-8 week follow-up MRI with and without IV contrast to document resolution and exclude alternative etiologies. - There is a possible 3 mm hypoenhancing lesion within the right aspect of the anterior pituitary lobe that could reflect a pituitary microadenoma which can be correlated with endocrine function tests. - There is mild to moderate chronic microangiopathy. - Moderate sinus mucosal disease. Head/Neck CTA 04/13/22 12:09 IMPRESSION: - The small punctate acute infarct within the right occipital lobe seen on the recent brain MRI is not well visualized on this head CT. Chronic microangiopathy again noted. - No acute arterial occlusions and no significant arterial stenoses within the head or neck. Progress Note: A&P Assessment and plan (1) LVH (left ventricular hypertrophy): Status: Acute Assessment and Plan: Patient is significantly increased left ventricle wall thickness with relatively lower QRS voltage with no history of hypertension, with echo longitudinal strain suggestive of cardiac amyloidosis. His current cardiac status explains his sym ptoms of shortness of breath as well as elevated BNP due to diastolic dysfunction. He has no overt signs of congestive heart failure. However at high risk for developing heart failure in the future. His elevated troponin also probably from subendocardial strain with acute medical illness which could be either seizure or related to the stroke. He should have a event monitor as an outpatient. Also he has a textile colorist formulator in [place] and advised him to follow-up soon with him and pursue cardiac amyloidosis workup in near future. He understands agrees. This may include nuclear study with technetium pyrophosphate or cardiac MRI and may need biopsy. We discussed about potential amyloidosis diagnosis and treatment options. He understands. No other pharmacotherapy required especially his blood pressure is on the lower side. Advised to increase his oral hydration. (2) Acute embolic stroke: Status: Acute Assessment and Plan: Patient with findings of acute embolic stroke. Continue aspirin and statins. He has no obvious signs of atherosclerosis. Could be embolic from the heart related to increased left atrial chamber size. Need evaluation of atrial fibrillation with outpatient event monitor. Can be pursued in [place] with his own textile colorist formulator. Will sign of the case. Thank you for allowing me to partake in his care Time Spent With Patient Time: Total time spent is greater than 50% in coordination of care (as documented) at patient's floor/unit and/or counseling patient: Progress Note: Quality Stroke Does the patient have a stroke diagnosis?: No Procedures Date of Service Date of Service: 04/14/22
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
--- NOTE | 2022-04-14 11:34 | MHC.CM.PN ---
Patient has been medically cleared for dc to home today, self care.
== END 2022-04-14 13:50 | disposition home or self-care (01) | DRG 66 ==
LOC: HO.ED 17:30 → HO.EDOVER 18:33 → HO.IMC 04-11 15:29
PROVIDERS: Physician Assistant Medical; Admitting Provider Student in an Organized Health Care Education/Training Program; Emergency Provider Emergency Medicine; Visit Provider Student in an Organized Health Care Education/Training Program
DX: I63.40 Cerebral infarction due to embolism of unspecified cerebral artery (principal); I51.7 Cardiomegaly; R55 Syncope and collapse; Z20.822 Contact with and (suspected) exposure to COVID-19; R29.700 NIHSS score 0; Z79.899 Other long term (current) drug therapy
CPT/HCPCS: 36415; 70450; 70496; 70498; 70553; 71046; 80048; 80053; 80061; 80307; 81003; 82077; 83605; 83735; 83880; 84484; 85025; 85027; 85379; 85610; 85730; 87635; 93005; 93306; 93356; 95816; 99205; 99285; A9585; J1650; Q9967